=== PATIENT | female | born 1950 | race Two or more races ===

== ENCOUNTER 2016-11-09 20:58 | Emergency (ER) | payer OTHER ==
[~2016-11-09] VITALS: Ht 170.2 cm; Wt 99.8 kg
[2016-11-09 21:49] LABS: BASOPHIL % 0.2 % (0.0-0.2); EOSINOPHIL # 0.1 10^3/uL (0.0-0.2); EOSINOPHIL % 2.1 % (0.0-5.0); HEMATOCRIT 27.5 % (36.0-46.0); HEMOGLOBIN 7.3 g/dL (12.0-15.0); LYMPHOCYTES # 1.8 10^3/uL (1.0-4.8); LYMPHOCYTES % 34.4 % (24.0-44.0); MEAN CELL HGB 16.2 pg (26-34); MEAN CELL HGB CONCENTRATION 26.5 g/dL (33-37); MEAN PLATELET VOLUME 9.3 fL (7.8-11.0); MONOCYTES # 0.5 10^3/uL (0.3-0.8); MONOCYTES % 10.5 % (5.0-12.0); NEUTROPHIL # 2.7 10^3/uL (1.8-7.7); NEUTROPHILS % 52.8 % (41.0-85.0); RED CELL DISTRIBUTION WIDTH 20.9 % (11.5-14.5); WHITE BLOOD CELL 5.1 10^3/uL (4.5-11.0)
--- NOTE | 2016-11-09 21:51 | ER.PDOC ---
General Chief Complaint: Dizziness Stated Complaint: BLOOD PRESSURE ISSUES Time seen by MD: 19:48 Source: patient Exam Limitations: no limitations History of Present Illness Initial Comments Dizziness for 2 days. No chest pain. Severity: moderate Associated Symptoms: sense of movement Worsened By: changing position, movement of head Past Medical History Medical History: no pertinent history Social History Smoking: non-smoker Alcohol Use: none Drug Use: none Review of Systems Constitutional: no symptoms reported Ears: dizziness Mouth: no symptoms reported Throat: no symptoms reported Respiratory: no symptoms reported Cardiovascular: no symptoms reported Gastrointestinal: no symptoms reported Musculoskeletal: no symptoms reported All Other Systems: Reviewed and Negative Physical Exam General Appearance: alert, no distress EENT: nml eye inspection, PERRL, no nystagmus, nml ENT inspection, pharynx nml , TM's nml Neck: supple Respiratory: no resp distress, breath sounds nml CVS: reg rate & rhythm, heart sounds.nml Abdomen: non-tender, no organomegaly, no distention Skin: color nml, no rash, warm/dry Extremities: non-tender, nml ROM, no pedal edema Neuro/Psych: nml orientation, nml speech/cognition, nml mood/affect Cranial Nerves: nml as tested, no evidence of acute CVA Sensorimotor: nml motor, nml sensation Results/Orders Results/Orders Laboratory Tests Test 11/09/16 21:40 White Blood Count 5.110^3/uL (4.5-11.0) Red Blood Count 4.5110^6/uL (4.00-5.20) Hemoglobin 7.3g/dL (12.0-15.0) Hematocrit 27.5% (36.0-46.0) Mean Corpuscular Volume 61.0fL (78-100) Mean Corpuscular Hemoglobin 16.2pg (26-34) Mean Corpuscular Hemoglobin Concent 26.5g/dL (33-37) Red Cell Distribution Width 20.9% (11.5-14.5) Platelet Count 13202^3/uL (150-400) Mean Platelet Volume 9.3fL (7.8-11.0) Neutrophils (%) (Auto) 52.8% (41.0-85.0) Lymphocytes (%) (Auto) 34.4% (24.0-44.0) Monocytes (%) (Auto) 10.5% (5.0-12.0) Neutrophils # (Auto) 2.710^3/uL (1.8-7.7) Lymphocytes # (Auto) 1.810^3/uL (1.0-4.8) Monocytes # (Auto) 0.510^3/uL (0.3-0.8) Absolute Immature Granulocyte (auto 010^3 u/L (0-2) Eosinophils % 2.1% (0.0-5.0) Basophils % 0.2% (0.0-0.2) Basophils # 0.010^3/uL (0.0-0.1) Eosinophil Count 0.110^3/uL (0.0-0.2) Sodium Level 142mmol/L (132-145) Potassium Level 3.3mmol/L (3.6-5.2) Chloride Level 108.0mmol/L (96-109) Carbon Dioxide Level 24.2mmol/L (20.0-32) Anion Gap 13.1 Blood Urea Nitrogen 14mg/dL (7-18) Creatinine 0.76mg/dL (0.59-1.40) Estimat Glomerular Filtration Rate 0 BUN/Creatinine Ratio 18.0 Glucose Level 117mg/dL (70-110) Calculated Osmolality 295.0 Calcium Level 8.3mg/dL (8.4-10.5) Total Bilirubin 0.3mg/dL (0.2-1.0) Aspartate Amino Transf (AST/SGOT) 19U/L (0-35) Alanine Aminotransferase (ALT/SGPT) 23U/L (12-78) Alkaline Phosphatase 67U/L (50-136) Total Creatine Kinase 49U/L (26-192) Creatine Kinase MB 0.7ng/mL (0.5-3.6) Troponin I < 0.02ng/mL (0.00-0.05) Pro-B-Type Natriuretic Peptide 254pg/mL (0-125) Total Protein 6.7g/dL (6.4-8.2) Albumin 3.6g/dL (3.4-5.0) Globulin 3.1 Percent Immature Gran (Cell Imm) 0.00% (0.00-0.50) Progress Progress Reviewed labs with patient. She understands that her hemoglobin is low and needs follow up with her PCP in [place]. She leaves tomorrow. EKG/XRAY/CT/US XRAY: chest (Nothing acute, large hiatal hernia) CT Comments: No acute intracranial abnormality on CT head Course Blood Pressure Systolic: 144 Blood Pressure Diastolic: 92 Blood Pressure Mean: 109 Departure Time of Disposition: 20:25 Disposition: 01 HOME, SELF-CARE Impression: Primary Impression: Vertigo Additional Impression: Anemia Condition: Stable Referrals: PCP,UNKNOWN (PCP) PRIMARY CARE PROVIDER Additional Instructions: Meclizine F/U with your PCP in 2-3 days Problem Qualifiers Additional Impression: Anemia Anemia type: unspecified type Qualified Code: D64.9 - Anemia, unspecified FADIA MARCOS MD Nov 09, 2016 21:51
--- NOTE | 2016-11-09 22:02 | DIREP ---
PROCEDURE:CHEST 1 VIEW COMPARISON:None. INDICATIONS:Dizziness FINDINGS: LUNGS/PLEURA:No significant pulmonary parenchymal abnormalities. No effusions. VASCULATURE:Normal. Unremarkable pulmonary vasculature. CARDIAC:Normal. No cardiac silhouette abnormality or cardiomegaly. MEDIASTINUM:Very large hiatal hernia BONES:Normal. No fracture or visible bony lesion. OTHER:Surgical clips in the neck CONCLUSION: 1. Very large hiatal hernia. Otherwise negative chest Dictated by: Terry Romo Jr. on 11/09/2016 at 10:01 PM
--- NOTE | 2016-11-09 22:09 | DIREP ---
PROCEDURE:CT HEAD OR BRAIN W/O CONTRAST COMPARISON:None. INDICATIONS:Dizziness TECHNIQUE:CT images were created without intravenous contrast. FINDINGS: VENTRICLES:The ventricles are normal in size and configuration. CEREBRUM:Normal cerebral morphology with appropriate ernandez white matter differentiation. Left frontal calcification suggests previous insult CEREBELLUM:Negative. BRAINSTEM:Negative. BASAL CISTERNS:Negative. HEMORRHAGE:No MASS LESION:No ACUTE INFARCT:No SKULL:Normal. SINUSES:Small mucous retention cyst or polyp in the left maxillary sinus OTHER:None CONCLUSION: 1. No acute intracranial abnormality 2. Left frontal lobe calcification indicates a remote insult. 3. Left maxillary sinus is. Dictated by: Terry Romo Jr. on 11/09/2016 at 10:08 PM
[2016-11-09 22:15] LABS: ALANINE AMINOTRANSFERASE 23 U/L (12-78); ALKALINE PHOSPHATASE 67 U/L (50-136); ASPARTATE AMINO TRANSFERASE 19 U/L (0-35); CALCIUM 8.3 mg/dL (8.4-10.5); CARBON DIOXIDE 24.2 mmol/L (20.0-32); GLUCOSE 117 mg/dL (70-110)
[2016-11-09 22:37] VITALS: BP 143/85
== END 2016-11-09 22:37 | disposition home or self-care (01) ==
LOC: ER 20:59
DX: D64.9 Anemia, unspecified (principal); R42 Dizziness and giddiness
CPT/HCPCS: 36415; 70450; 71010; 80053; 82550; 83880; 84484; 85025; 93005; 99285